=== PATIENT | female | born 1995 | race African-American/Black ===

== ENCOUNTER 2016-12-29 10:22 | Inpatient (IN) | payer MEDICAID, OTHER ==
[~2016-12-29] VITALS: Ht 160 cm; Wt 83.0 kg
[2016-12-29] MEDS ORDERED: ONDANSETRON 4MG ODT PO STA (15:46)
[2016-12-29 16:04] LABS: CLARITY URINE CLOUDY (CLEAR); COLOR URINE YELLOW (YELLOW); GLUCOSE URINE NEGATIVE (NEGATIVE); KETONES URINE NEGATIVE (NEGATIVE); LEUKOCYTE ESTERASE URINE TRACE (NEGATIVE); NITRITE URINE POSITIVE (NEGATIVE); OCCULT BLOOD URINE NEGATIVE (NEGATIVE); PH URINE 6.5 (4.5-8.0); PROTEIN URINE TRACE (NEGATIVE); SPECIFIC GRAVITY URINE 1.026 (1.005-1.030); UROBILINOGEN URINE 0.2 E.U./dL (0.2-1.0)
[2016-12-29 16:15] LABS: *AMPHETAMINES SCREEN URINE NEGATIVE (NEGATIVE); *BARBITURATES SCREEN URINE NEGATIVE (NEGATIVE); *BENZODIAZEPINES SCREEN URINE NEGATIVE (NEGATIVE); *COCAINE SCREEN URINE NEGATIVE (NEGATIVE); METHADONE URINE SCREEN NEGATIVE (NEGATIVE); OPIATES URINE SCREEN NEGATIVE (NEGATIVE); PHENCYCLIDINE URINE SCREEN NEGATIVE (NEGATIVE)
[2016-12-29 16:16] LABS: CANNABINOID URINE SCREEN PRESUMTIVE POSITIVE (NEGATIVE)
[2016-12-29 16:26] LABS: BASOPHILS % 0.5 % (0.0-2.0); EOSINOPHILS % 1.1 % (0.0-5.0); HEMATOCRIT. 25.6 % (36.0-48.0); HEMOGLOBIN. 7.8 g/dL (12.0-16.0); LYMPHOCYTES % 17.4 % (20.0-50.0); MEAN CORPUSCULAR HEMOGLOBIN 21.4 pg (28.0-32.0); MEAN PLATELET VOLUME 7.3 fl (7.4-10.4); MONOCYTES % 7.6 % (2.0-8.0); NEUTROPHILS % 73.4 % (40.0-76.0); PLATELET 331 x1000/uL (130-400); RED BLOOD CELL COUNT 3.66 mill/uL (4.2-5.4); RED CELL DISTRIBUTION WIDTH 17.4 % (11.6-14.6)
[2016-12-29 16:29] LABS: CHLORIDE 106 mEq/L (98-107)
[2016-12-29 16:35] LABS: CARBON DIOXIDE 27 mEq/L (21-32)
[2016-12-29 16:45] LABS: HCG SCREEN NEGATIVE
[2016-12-29 16:51] LABS: PLATELET ESTIMATE NORMAL
[2016-12-29] MEDS ORDERED: CEFTRIAXONE 1 G PREMIX 50 ML IV ONE (17:15)
[2016-12-29] MEDS ORDERED: ACETAMINOPHEN 325MG TABLET PO ONE (17:15)
[2016-12-29 17:37] LABS: TOTAL IRON BINDING CAPACITY 363 ug/dL (250-450)
[2016-12-29 20:45] VITALS: BP 116/83
[2016-12-30] VITALS: BP 103/69
[2016-12-30 04:00] VITALS: BP 89/42
[2016-12-30 08:00] VITALS: BP 96/61
[2016-12-30 09:16] LABS: HEMATOCRIT. 26.3 % (36.0-48.0); MEAN CORPUSCULAR HEMOGLOBIN 21.2 pg (28.0-32.0); MEAN CORPUSCULAR VOLUME 69.9 fL (81.0-99.0); PLATELET 341 x1000/uL (130-400); RED BLOOD CELL COUNT 3.77 mill/uL (4.2-5.4); RED CELL DISTRIBUTION WIDTH 17.3 % (11.6-14.6)
[2016-12-30 09:44] LABS: CARBON DIOXIDE 26 mEq/L (21-32); CHLORIDE 106 mEq/L (98-107); TOTAL IRON BINDING CAPACITY 346 ug/dL (250-450)
[2016-12-30] MEDS ORDERED: FLUCONAZOLE 200MG TABLET PO SCH (11:00)
[2016-12-30 12:00] VITALS: BP 104/65
[2016-12-30] MEDS ORDERED: LEVOFLOXACIN 500MG PREMIX 100 ML IV SCH (12:00)
[2016-12-30 14:32] VITALS: BP 109/66
[2016-12-30 21:08] LABS: PLATELET ESTIMATE NORMAL
== END 2016-12-30 15:25 | disposition home or self-care (01) | DRG 463 ==
LOC: ER 13:24 → 8WST 17:37 → EDBEDREQ 17:41 → EDBEDREQTM 17:41 → ENRESERV 19:04
PROVIDERS: ADMIT Hospitalist; ATTEND Hospitalist
DX: N39.0 Urinary tract infection, site not specified (principal); D64.9 Anemia, unspecified
CPT/HCPCS: 36415; 80048; 80053; 80305; 81001; 83540; 83550; 84703; 85007; 85025; 85027; 85044; 86850; 86900; 86920; 96365; 99285; J0696; J1956; Q0162